=== PATIENT | female | born 1940 | race Caucasian/White ===

== ENCOUNTER → 2017-11-10 | Outpatient (CLI) | payer MEDICARE, OTHER ==
[~2017-11-10] MED LIST: ACET500T68 PO; ALBI30PE SC; BUPR1PAT9 TD; CARV12.578 PO; CHOL500045 PO; CLOP75TA PO; CYA1000 PO; DICL100G39 TP; DULO30CA35 PO; ENAL-18 PO; GABA-549 PO; HYDR12.556 PO; LEVO-3 PO; MEMA10TA18 PO; PANT40TA65 PO; POTA-23 PO; PRAV20TA65 PO; SOLI10TA8 PO; SULF-198 PO
[2017-11-10 10:45] LABS: PLATELET COUNT, AUTOMATED 222 K/uL (150-450)
== END ==
LOC: LAB 09:57
PROVIDERS: ATTEND Nurse Practitioner Family
DX: J44.1 Chronic obstructive pulmonary disease with (acute) exacerbation (principal); R50.9 Fever, unspecified
CPT/HCPCS: 36415; 85025; 85651

== ENCOUNTER → 2017-11-10 | Outpatient (CLI) | payer MEDICARE, OTHER | LOC: LAB 10:00 | PROVIDERS: ATTEND Internal Medicine Cardiovascular Disease | DX: E78.00 Pure hypercholesterolemia, unspecified (principal); I10 Essential (primary) hypertension | CPT/HCPCS: 36415; 82040; 82247; 82310; 82374; 82435; 82465; 82565; 82947; 83718; 84075; 84132; 84155; 84295; 84450; 84460; 84478; 84520 ==

== ENCOUNTER → 2018-07-17 | Outpatient (CLI) | payer MEDICARE, OTHER ==
[~2018-07-17] MED LIST changes: -ALBI30PE SC; +ALBI30PE3 SC
[2018-07-17 11:01] LABS: LDL CHOLESTEROL 87 mg/dl
== END ==
LOC: LAB 09:21
PROVIDERS: ATTEND Nurse Practitioner Family
DX: D89.89 Other specified disorders involving the immune mechanism, not elsewhere classified (principal); I25.10 Atherosclerotic heart disease of native coronary artery without angina pectoris; G89.4 Chronic pain syndrome; Z85.850 Personal history of malignant neoplasm of thyroid; F03.90 Unspecified dementia, unspecified severity, without behavioral disturbance, psychotic disturbance, mood disturbance, and anxiety; D51.0 Vitamin B12 deficiency anemia due to intrinsic factor deficiency; R41.3 Other amnesia; E89.0 Postprocedural hypothyroidism; R29.6 Repeated falls; E55.9 Vitamin D deficiency, unspecified
CPT/HCPCS: 36415; 82040; 82247; 82310; 82374; 82435; 82465; 82565; 82607; 82947; 83036; 83718; 84075; 84132; 84155; 84295; 84443; 84450; 84460; 84478; 84520; 85027

== ENCOUNTER 2019-03-04 08:46 | Emergency (ER) | payer MEDICARE, OTHER ==
--- NOTE | 2019-03-04 08:49 | ER Report ---
History and Physical Time Seen By MD: 08:45 HPI/ROS CHIEF COMPLAINT: blood in brief HISTORY OF PRESENT ILLNESS: Patient is a 78 yo F with dementia, brought in by her daughter who noticed blood in her brief this morning. Her daughter reports that the patient had been complaining of lower abdominal pain for 2 days. The patient denies radiation of the pain. She believes her BMs have been regular without melena/hematochezia, denies dysuria. Her last meal was last night at 8 pm, nothing to eat or drink this morning. REVIEW OF SYSTEMS: Constitutional: No fever, no chills. Eyes: No discharge. ENT: No sore throat. Cardiovascular: No chest pain, no palpitations. Respiratory: No cough, mild shortness of breath. Gastrointestinal: as above Genitourinary: hematuria per daughter Musculoskeletal: No back pain, no CVA tenderness Skin: No rashes. Neurological: mild L occipital headache. Allergies: Coded Allergies: atorvastatin (Verified Allergy, Intermediate, 03/04/19) calcium (Verified Allergy, Intermediate, 03/04/19) codeine (Verified Allergy, Intermediate, 03/04/19) morphine (Verified Allergy, Intermediate, 03/04/19) rosuvastatin (Verified Allergy, Intermediate, 03/04/19) Home Meds Active Scripts Cephalexin 500 Mg Tab (KEFLEX 500 MG TAB) 500 Mg Tablet, 500 MG PO Q6H, #28 TAB 0 Refills TAKE ONE TABLET BY MOUTH EVERY SIX HOURS Prov:SHEKHAR MASON MD 03/04/19 Reported Medications Dulaglutide (Trulicity) 0.75 Mg/0.5 Ml Pen.injctr 03/04/19 Cyanocobalamin (Vitamin B-12) (VITAMIN B-12) 1,000 Mcg Tablet, 3000 MCG PO 3XW 04/14/17 Cholecalciferol (Vitamin D3) (VITAMIN D) 5,000 Unit Tablet, 5000 UNIT PO QDAY 04/14/17 Acetaminophen (TYLENOL EXTRA STRENGTH) 500 Mg Tablet, 1000 MG PO BID, TAB 04/14/17 Duloxetine Hcl (CYMBALTA) 30 Mg Capsule.dr, 30 MG PO QDAY, #5 CAP 04/14/17 Memantine Hcl 10 Mg Tab (NAMENDA 10 MG TAB) 10 Mg Tablet, 10 MG PO BID, TAB 04/14/17 Diclofenac Sodium 1% Gel (VOLTAREN 1% GEL) 100 Gm Gel..gram., 4 GM TP QID 04/14/17 Pantoprazole Sodium (PANTOPRAZOLE SODIUM) 40 Mg Tablet.dr, 40 MG PO QDAY, TAB.SR 04/14/17 Enalapril Maleate (ENALAPRIL MALEATE) 10 Mg Tablet, 10 MG PO QDAY 04/14/17 Carvedilol (CARVEDILOL) 12.5 Mg Tablet, 12.5 MG PO BID, #10 TAB 04/14/17 Pravastatin Sodium (PRAVACHOL) 20 Mg Tablet, 40 MG PO QDAY, TAB 04/14/17 Levothyroxine Sodium (LEVOTHYROXINE SODIUM) 100 Mcg Tablet, 125 MCG PO QDAY, TAB 04/14/17 Buprenorphine (BUTRANS) 1 Each Patch.tdwk, 1 EACH TD QWEEK 04/14/17 Clopidogrel Bisulfate (CLOPIDOGREL) 75 Mg Tablet, 1 TAB PO QDAY, TAB 04/14/17 Discontinued Reported Medications Albiglutide (Tanzeum) 30 Mg/0.5 Ml Pen.injctr, 30 MG SC QWK 04/14/17 Gabapentin (GABAPENTIN) 300 Mg Capsule, 300 MG PO BID, CAPSULE 04/14/17 Solifenacin Succinate (VESICARE) 10 Mg Tablet, 10 MG PO QAM 04/14/17 Hydrochlorothiazide (HYDROCHLOROTHIAZIDE) 12.5 Mg Capsule, 1 TAB PO QDAY, CAPSULE 04/14/17 Potassium Chloride (KLOR-CON 10) 10 Meq Tablet.er, 10 MEQ PO QDAY 04/14/17 Discontinued Scripts Sulfamethoxazole/Trimet 800-160 Mg Tab (BACTRIM DS TABLET) 1 Each Tablet, 1 TAB PO Q12H, #12 TAB Prov:DYLAN WELCH COMPENSATOR 04/14/17 Past Medical/Surgical History Patient has a past medical history of TIA, dementia, bradycardia, hypertension, hyperlipidemia, reflux, arthritis, fractures, hypothyroidism. Patient has a surgical history of pacemaker placement, knee replacement surgery. Constitutional Vital Sign - Last 24 Hours 03/04/19 08:54 Temp 98.0 Pulse 73 Resp 20 B/P (MAP) 196/122 Pulse Ox 91 O2 Delivery Room Air Physical Exam General Appearance: The patient is alert, has no immediate need for airway protection and no signs of toxicity. Defers many questions to daughter as patient has dementia/short term memory loss Eyes: Pupils equal and round no pallor or injection. ENT, Mouth: Mucous membranes are mildly dry Respiratory: There are no retractions, lungs are clear to auscultation. Cardiovascular: Regular rate and rhythm. Gastrointestinal: Abdomen is soft and bowel sounds normal. Tender to palpation in epigastric and periumbilical region. Neurological: alert and interactive, moving all extremities, CN 2-12 grossly intact. Skin: Warm and dry, no rashes. Spider angioma on R upper chest Musculoskeletal: Neck is supple non tender. No CVA tenderness. Shoulders are tender with decreased range of motion bilaterally. DIFFERENTIAL DIAGNOSIS: After history and physical exam differential diagnosis was considered for UTI, pyelonephritis, bladder or renal malignancy, diverticulosis/diverticulitis, angiodysplasia, hemorrhoids. Medical Decision Making Data Points Result Diagram: 03/04/19 0935 03/04/19 0935 Laboratory Hematology Test 03/04/19 09:35 White Blood Count 6.6 k/uL (4.5-11.0) Red Blood Count 4.56 M/uL (4.17-5.56) Hemoglobin 14.4 g/dL (12.0-16.0) Hematocrit 42.3 % (34.0-47.0) Mean Corpuscular Volume 92.8 fL (80.0-96.0) Mean Corpuscular Hemoglobin 31.6 pg (26.0-33.0) Mean Corpuscular Hemoglobin Concent 34.0 g/dL (32.0-36.0) Red Cell Distribution Width 13.7 % (11.5-14.5) Platelet Count 211 K/uL (150-450) Mean Platelet Volume 9.0 fL (7.2-11.1) Neutrophils (%) (Auto) 59.4 % (39.4-72.5) Lymphocytes (%) (Auto) 31.3 % (17.6-49.6) Monocytes (%) (Auto) 7.1 % (4.1-12.4) Eosinophils (%) (Auto) 1.2 % (0.4-6.7) Basophils (%) (Auto) 1.0 % (0.3-1.4) Nucleated RBC Relative Count (auto) 0.0 /100WBC Neutrophils # (Auto) 4.0 K/uL (2.0-7.4) Lymphocytes # (Auto) 2.1 K/uL (1.3-3.6) Monocytes # (Auto) 0.5 K/uL (0.3-1.0) Eosinophils # (Auto) 0.1 K/uL (0.0-0.5) Basophils # (Auto) 0.1 K/uL (0.0-0.1) Nucleated RBC Absolute Count (auto) 0.00 K/uL Chemistry Test 03/04/19 09:35 Sodium Level 141 mmol/L (137-145) Potassium Level 4.8 mmol/L (3.5-5.0) Chloride Level 106 mmol/L (98-107) Carbon Dioxide Level 25 mmol/L (22-31) Blood Urea Nitrogen 23 mg/dl (7-18) Creatinine 0.90 mg/dl (0.52-1.04) Glomerular Filtration Rate Calc > 60.0 Random Glucose 112 mg/dl (75-110) Calcium Level 9.1 mg/dl (8.4-10.2) Total Bilirubin 0.6 mg/dl (0.2-1.3) Aspartate Amino Transf (AST/SGOT) 28 U/L (0-35) Alanine Aminotransferase (ALT/SGPT) 19 U/L (0-56) Alkaline Phosphatase 67 U/L (0-126) Total Protein 7.8 g/dl (6.3-8.2) Albumin 4.1 g/dl (3.5-5.0) Lipase 68 U/L (23-300) Urinalysis Test 03/04/19 08:52 Urine Color Yellow Urine Clarity Cloudy Urine pH 5.0 pH (4.8-9.5) Urine Specific [place] 1.023 Urine Protein Negative mg/dL (NEGATIVE) Urine Glucose (UA) Negative mg/dL (NEGATIVE) Urine Ketones Negative mg/dL (NEGATIVE) Urine Blood Small (NEGATIVE) Urine Nitrite Negative (NEGATIVE) Urine Bilirubin Negative (NEGATIVE) Urine Urobilinogen Negative mg/dL (0.2-1.9) Urine Leukocyte Esterase Large (NEGATIVE) Urine RBC 7 /HPF (0-2/HPF) Urine WBC 146 /HPF (0-5/HPF) Urine Squamous Epithelial Cells Many /LPF (</=FEW) Urine Transitional Epithelial Cells Few /LPF (NONE-FEW) Urine Bacteria Many /HPF (NONE-FEW) Urine Mucus Few /HPF (NONE-FEW) EKG/Imaging Imaging FACILITY: [facility] [place] PATIENT NAME: Manasa Batres : 1940 MR: [id number] V: [id number] EXAM DATE: ORDERING PHYSICIAN: SHEKHAR MASON TECHNOLOGIST: Location: [facility] - [place], [place] Patient: Manasa Batres : 1940 Visit/Account:[id number] Date of Sevice: 03/04/2019 CT ABDOMEN PELVIS W/ CON HISTORY: abdominal pain TECHNIQUE: Following administration of IV contrast contiguous axial images acquired through the abdomen/pelvis. Coronal and sagittal reformatting also performed.Dose Lowering Technique One of the following dose optimization techniques was utilized in the performance of this exam: Automated exposure control; adjustment of the mA and/or kV according to the patient's size; or use of an iterative reconstruction technique. Specific details can be referenced in the facility's radiology CT exam operational policy. CONTRAST: 75 mL Isovue-370 COMPARISON: None. FINDINGS: There are numerous artifacts as the patient was scanned with her arms at her side Visualized lung bases: Scarring versus atelectasis in the inferior lingula. Incompletely imaged is a cardiac pacemaker and sternotomy sutures Hepatobiliary: Gallbladder appears moderately distended although no obstructing calculus is not seen. There is no evidence of biliary obstruction Spleen: Negative. Adrenals: Negative. Pancreas: Negative. Kidneys ureters or bladder: There are subcentimeter hypodensities in both kidneys that are too small to characterize. The upper pole of the left kidney appears heterogeneous which could be related to scarring although clinical correlation needed. There are several calcifications just anterior to the right psoas muscle in the mid abdomen Which could be vascular in etiology although ureteral calculi cannot be excluded. Ureters are not ideally identified in this patient due to lack of ureteral opacification. There is no evidence of hydronephrosis Genitalia: Hysterectomy GI: There is diverticulosis of the left side of the colon although no CT evidence of acute diverticulitis Vessels/spaces/nodes: Extensive vascular calcifications throughout the abdomen and pelvis Bones/soft tissues: Spondylotic changes of the lumbar spine . There is a small umbilical hernia containing fat. There are several fat- containing ventral hernias in the lower abdomen below the level the umbilicus of the largest is to the left of midline with the hernia opening measuring approximately 2.6 cm in diameter Additional findings: None pertinent. IMPRESSION: Gallbladder is moderately distended although no obstructing calculi or biliary ductal dilatation is identified. Depending upon the clinical presentation gallbladder ultrasound may be of value Subcentimeter hypodensities in the kidneys are too small to characterize Upper pole the left kidney is heterogeneous which could be related to scarring although differential diagnosis would include focal pyelonephritis or ill- defined mass There are several calcifications just anterior to the right psoas muscle in the mid abdomen. These could be vascular in etiology although ureteral calculi cannot be excluded as ureters are not ideally identified due to lack of ureteral opacification. There is however no evidence of hydronephrosis Left-sided colonic diverticulosis Extensive vascular calcifications throughout the abdomen and pelvis Several fat-containing ventral hernias the lower abdomen. The largest is to the left of midline with the hernia opening measuring 2.6 cm in diameter Report Dictated By: Jessica Gerard MD at 03/04/2019 10:37 AM Report E-Signed By: Jessica Gerard MD at 03/04/2019 10:53 AM [email or web address] ED Course/Re-evaluation ED Course 03/04/2019 11:24:14 am workup reveals a suspected urinary tract infection remaining blood work is unremarkable CT scan shows some dilated gallbladder but no evidence of stone no evidence of hydronephrosis and no other major concerning finding. I will treat as urinary tract infection for 7 days with oral cephalexin and have her follow-up with her primary care provider in 48 hours Decision to Disposition Date: Mar 04, 2019 Decision to Disposition Time: 11:25 Depart Departure Latest Vital Signs Vital Signs Date Time Temp Pulse Resp B/P (MAP) Pulse Ox O2 Delivery O2 Flow Rate FiO2 03/04/19 08:54 98.0 73 20 196/122 91 Room Air Impression: Primary Impression: UTI (urinary tract infection) Condition: Improved Disposition: HOME OR SELF-CARE Referrals: JINA MCCLAIN (PCP) 2 Days for recheck of symptoms New Scripts Cephalexin 500 Mg Tab (KEFLEX 500 MG TAB) 500 Mg Tablet 500 MG PO Q6H, #28 TAB 0 Refills TAKE ONE TABLET BY MOUTH EVERY SIX HOURS Prov: SHEKHAR AMSON MD 03/04/19 Patient Instructions: Urinary Tract Infection in Women (DC) Additional Instructions: Follow-up with your primary care provider in the next 24-48 hours for recheck of your symptoms, take your antibiotics as directed, return to the emergency department if symptoms worsen at any time. Problem Qualifiers Primary Impression: UTI (urinary tract infection) Urinary tract infection type: acute cystitis Hematuria presence: with hematuria Qualified Codes: N30.01 - Acute cystitis with hematuria SHEKHAR MASON MD Mar 04, 2019 08:49
[2019-03-04 08:54] VITALS: BP 196/122
[2019-03-04] MEDS ORDERED: DULA0.75 (09:07)
[2019-03-04] MEDS ORDERED: NS(*) 0.9% 500 ML BAG 500 ML IV ONE (09:22)
[2019-03-04] MEDS ORDERED: IOPAMIDOL 76% 100 ML INFUS BTL 100 ML ONE (09:40)
[2019-03-04 09:55] LABS: PLATELET COUNT, AUTOMATED 211 K/uL (150-450)
--- NOTE | 2019-03-04 11:01 | RADIOLOGY IMAGING REPORT ---
FACILITY: [facility] PATIENT NAME: Manasa Batres : 1940 MR: [id number] V: [id number] EXAM DATE: ORDERING PHYSICIAN: SHEKHAR MASON TECHNOLOGIST: Location: [facility] Patient: Manasa Batres : 1940 Visit/Account:[id number] Date of Sevice: 03/04/2019 CT ABDOMEN PELVIS W/ CON HISTORY: abdominal pain TECHNIQUE: Following administration of IV contrast contiguous axial images acquired through the abdom en/pelvis. Coronal and sagittal reformatting also performed.Dose Lowering Technique One of the following dose optimization techniques was utilized in the performance of this exam: Autom ated exposure control; adjustment of the mA and/or kV according to the patient's size; or use of an i terative reconstruction technique. Specific details can be referenced in the facility's radiology C T exam operational policy. CONTRAST: 75 mL Isovue-370 COMPARISON: None. FINDINGS: There are numerous artifacts as the patient was scanned with her arms at her side Visualized lung bases: Scarring versus atelectasis in the inferior lingula. Incompletely imaged is a cardiac pacemaker and sternotomy sutures Hepatobiliary: Gallbladder appears moderately distended although no obstructing calculus is not seen . There is no evidence of biliary obstruction Spleen: Negative. Adrenals: Negative. Pancreas: Negative. Kidneys ureters or bladder: There are subcentimeter hypodensities in both kidneys that are too small to characterize. The upper pole of the left kidney appears heterogeneous which could be related to s carring although clinical correlation needed. There are several calcifications just anterior to the right psoas muscle in the mid abdomen Which could be vascular in etiology although ureteral calculi cannot be excluded. Ureters are not id eally identified in this patient due to lack of ureteral opacification. There is no evidence of hydr onephrosis Genitalia: Hysterectomy GI: There is diverticulosis of the left side of the colon although no CT evidence of acute diverticu litis Vessels/spaces/nodes: Extensive vascular calcifications throughout the abdomen and pelvis Bones/soft tissues: Spondylotic changes of the lumbar spine . There is a small umbilical hernia containing fat. There are several fat-containing ventral hernias i n the lower abdomen below the level the umbilicus of the largest is to the left of midline with the h ernia opening measuring approximately 2.6 cm in diameter Additional findings: None pertinent. IMPRESSION: Gallbladder is moderately distended although no obstructing calculi or biliary ductal dilatation is i dentified. Depending upon the clinical presentation gallbladder ultrasound may be of value Subcentimeter hypodensities in the kidneys are too small to characterize Upper pole the left kidney is heterogeneous which could be related to scarring although differential diagnosis would include focal pyelonephritis or ill-defined mass There are several calcifications just anterior to the right psoas muscle in the mid abdomen. These c ould be vascular in etiology although ureteral calculi cannot be excluded as ureters are not ideally identified due to lack of ureteral opacification. There is however no evidence of hydronephrosis Left-sided colonic diverticulosis Extensive vascular calcifications throughout the abdomen and pelvis Several fat-containing ventral hernias the lower abdomen. The largest is to the left of midline with the hernia opening measuring 2.6 cm in diameter Report Dictated By: Jessica Gerard MD at 03/04/2019 10:37 AM Report E-Signed By: Jessica Gerard MD at 03/04/2019 10:53 AM [email or web address]
[2019-03-04] MEDS ORDERED: CEPH500T7 PO (11:32)
== END 2019-03-04 11:34 | disposition home or self-care (01) ==
LOC: ER 09:02
DX: N30.01 Acute cystitis with hematuria (principal)
CPT/HCPCS: 74177; 81001; 82274; 83690; 85025; 87077; 87088; 87186; 96360; 96361; 99284; J7040; Q9967; 82040; 82247; 82310; 82374; 82435; 82565; 82947; 84075; 84132; 84155; 84295; 84450; 84460; 84520